=== PATIENT | male | born 1945 | race Caucasian/White ===

== ENCOUNTER → 2020-03-03 | Outpatient (CLI) | payer OTHER ==
[~2020-03-03] MED LIST: ACETAMINOPHEN325 MG PO; ALBUTEROL2.5 MG/3 M INH; ASPIRIN EC81 MG PO; CRESTOR10 MG PO; DILTIAZEM 24HR120 M1 PO; DOXYCYCLINE HY100 M2 PO; G-FENESIN400 MG PO; HYDRALAZINE HCL10 MG PO; HYDROCHLOROTHIA25 MG PO; IPRAT-ALBUT 0.5-3 ML NEB; LOPRESSOR 25 MG25 MG PO; MELATONIN3 MG PO; NITROSTAT0.4 MG SL; OMEPRAZOLE20 MG PO; ONE-DAILY MULT1 EACH PO; PREDNISONE 10 M10 MG PO; PROAIR HFA8.5 GM INH; SPIRIVA HANDIH18 MCG INH; SPIRIVA RESPIMAT4 GM INH; SYMBICORT 160-1 INHA INH; TENORMIN 25 MG25 MG PO; THERAGRAN M TAB1 EA PO; TOPROL XL50 MG PO; VENTOLIN HFA 66.7 GM INH; VITAMIN B-1100 M1 PO; ZESTRIL40 MG PO
== END ==
LOC: HEART 5 10:54
DX: J96.01 Acute respiratory failure with hypoxia (principal); R94.2 Abnormal results of pulmonary function studies; F17.210 Nicotine dependence, cigarettes, uncomplicated
CPT/HCPCS: 94010; 94729

== ENCOUNTER → 2020-06-09 | Outpatient (CLI) | payer OTHER, MEDICARE | LOC: CT 06-01 13:30 → KOH-I 06-01 15:30 | DX: R91.1 Solitary pulmonary nodule (principal) | CPT/HCPCS: 71250 ==

== ENCOUNTER → 2020-08-20 | Outpatient (CLI) | payer MEDICARE, OTHER | LOC: EXRD 11:00 | DX: I73.9 Peripheral vascular disease, unspecified (principal); L97.519 Non-pressure chronic ulcer of other part of right foot with unspecified severity; I10 Essential (primary) hypertension; E78.5 Hyperlipidemia, unspecified; Z87.891 Personal history of nicotine dependence; M79.671 Pain in right foot | CPT/HCPCS: 73630; 93926 ==

== ENCOUNTER → 2021-07-22 | Outpatient (CLI) | payer MEDICARE | LOC: KOH-I 01-05 10:00 | DX: R91.8 Other nonspecific abnormal finding of lung field (principal) | CPT/HCPCS: 71250 ==